=== PATIENT | female | born 1970 | race Caucasian/White ===

== ENCOUNTER 2019-06-08 15:52 | Emergency (ER) | payer OTHER ==
[~2019-06-08] VITALS: Ht 154.9 cm; Wt 79.8 kg
[2019-06-08 15:54] VITALS: BP 117/86
[2019-06-08] MEDS ORDERED: VOLTAREN GEL 1100 G2 TOP (16:28)
== END 2019-06-08 16:46 | disposition home or self-care (01) ==
LOC: ER 15:52
DX: S40.011A Contusion of right shoulder, initial encounter (principal); E11.9 Type 2 diabetes mellitus without complications; E78.00 Pure hypercholesterolemia, unspecified; F32.9 Major depressive disorder, single episode, unspecified; F17.210 Nicotine dependence, cigarettes, uncomplicated; Z98.890 Other specified postprocedural states; Z86.2 Personal history of diseases of the blood and blood-forming organs and certain disorders involving the immune mechanism; Z90.49 Acquired absence of other specified parts of digestive tract; Z98.51 Tubal ligation status; W22.03XA Walked into furniture, initial encounter; Y93.89 Activity, other specified; Y92.89 Other specified places as the place of occurrence of the external cause; Y99.0 Civilian activity done for income or pay

== ENCOUNTER 2019-11-12 15:56 | Emergency (ER) | payer OTHER ==
[~2019-11-12] VITALS: Ht 154.9 cm; Wt 80.3 kg
[~2019-11-12 15:56] MED LIST: VOLTAREN GEL 1100 G2 TOP
[2019-11-12 16:01] VITALS: BP 123/85
[2019-11-12] MEDS ORDERED: KEFLEX500 M1 PO (16:25)
== END 2019-11-12 16:31 | disposition home or self-care (01) ==
LOC: ER 15:56
DX: L03.011 Cellulitis of right finger (principal); E11.9 Type 2 diabetes mellitus without complications; E78.00 Pure hypercholesterolemia, unspecified; F32.9 Major depressive disorder, single episode, unspecified; F17.210 Nicotine dependence, cigarettes, uncomplicated; Z98.890 Other specified postprocedural states; Z90.49 Acquired absence of other specified parts of digestive tract; Z98.51 Tubal ligation status; Z86.2 Personal history of diseases of the blood and blood-forming organs and certain disorders involving the immune mechanism

== ENCOUNTER → 2020-01-10 | Outpatient (CLI) | payer OTHER ==
[~2020-01-10] MED LIST changes: +KEFLEX500 M1 PO
== END ==
LOC: RAD 11:02
PROVIDERS: ATTEND Nurse Practitioner
DX: Z12.31 Encounter for screening mammogram for malignant neoplasm of breast (principal)

== ENCOUNTER → 2020-01-10 | Outpatient (CLI) | payer OTHER ==
[2020-01-10 11:07] LABS: ABSOLUTE NEUTROPHILS 5.5 thou/uL (1.4-8.2); BASOPHILS 0.5 % (0.0-2.0); EOSINOPHILS 1.1 % (0.0-3.0); HEMATOCRIT 44.4 % (37.0-47.0); HEMOGLOBIN 15.2 gm/dL (12.0-15.0); LYMPHOCYTES 22.7 % (24.0-44.0); MCH 28.7 pg (26.0-34.0); MCHC 34.2 g/dL (28.0-37.0); MCV 83.8 fL (80.0-100.0); PLATELET COUNT 264 thou/uL (150-400); POLYS 69.7 % (36.0-66.0); RDW 12.6 % (10.5-14.5); WBC 7.9 thou/uL (4.0-11.0)
[2020-01-10 11:37] LABS: ALBUMIN 4.1 g/dL (3.4-5.0); ANION GAP 6 mmol/L (7-16); BUN 13 mg/dL (7-18); CALCIUM 8.7 mg/dL (8.5-10.1); CHLORIDE 99 mmol/L (98-107); CO2 32 mmol/L (21-32); CREATININE 0.6 mg/dL (0.6-1.0); GLUCOSE 176 mg/dL (74-106); POTASSIUM 4.4 mmol/L (3.5-5.1); SGOT 23 U/L (15-37); SGPT 50 U/L (30-65); SODIUM 137 mmol/L (136-145); TOTAL BILIRUBIN 0.5 mg/dL (0.2-1.0); TOTAL PROTEIN 7.2 g/dL (6.4-8.2)
[2020-01-10 11:52] LABS: CHOLESTEROL 144 mg/dL (<200); HDL CHOLESTEROL 35 mg/dL (>40); LDL CHOLESTEROL 81 mg/dL (<100); TC:HDL 4.1 Ratio (Not establshd); TRIGLYCERIDE 142 mg/dL (<150); VLDL 28 mg/dL (<40)
[2020-01-11 02:07] LABS: GLYCOHEMOGLOBIN (HGB A1C) 8.2 % (4.8-5.6)
== END ==
LOC: LABMALL 10:28
PROVIDERS: ATTEND Nurse Practitioner
DX: E11.9 Type 2 diabetes mellitus without complications (principal); E78.5 Hyperlipidemia, unspecified; R74.8 Abnormal levels of other serum enzymes; I10 Essential (primary) hypertension

== ENCOUNTER → 2020-05-11 | Outpatient (CLI) | payer OTHER | LOC: LAB 08:18 | PROVIDERS: ATTEND Nurse Practitioner | DX: Z20.828 Contact with and (suspected) exposure to other viral communicable diseases (principal) ==

== ENCOUNTER → 2020-06-05 | Outpatient (CLI) | payer OTHER | LOC: LAB 10:29 | PROVIDERS: ATTEND Nurse Practitioner | DX: Z20.828 Contact with and (suspected) exposure to other viral communicable diseases (principal) ==

== ENCOUNTER → 2020-07-18 | Outpatient (CLI) | payer OTHER | LOC: LAB 14:15 | PROVIDERS: ATTEND Specialist | DX: Z20.828 Contact with and (suspected) exposure to other viral communicable diseases (principal) ==

== ENCOUNTER → 2020-07-24 | Outpatient (CLI) | payer OTHER | LOC: LAB 08:59 | PROVIDERS: ATTEND Specialist | DX: Z20.828 Contact with and (suspected) exposure to other viral communicable diseases (principal) ==

== ENCOUNTER → 2020-07-31 | Outpatient (CLI) | payer OTHER | LOC: LAB 10:03 | PROVIDERS: ATTEND Specialist | DX: Z20.828 Contact with and (suspected) exposure to other viral communicable diseases (principal) ==

== ENCOUNTER → 2020-08-07 | Outpatient (CLI) | payer OTHER ==
[2020-08-07 11:34] LABS: ANION GAP 10 mmol/L (7-16); BUN 26 mg/dL (7-18); CALCIUM 9.5 mg/dL (8.5-10.1); CHLORIDE 97 mmol/L (98-107); CHOLESTEROL 156 mg/dL (<200); CO2 29 mmol/L (21-32); CREATININE 0.8 mg/dL (0.6-1.0); GLUCOSE 222 mg/dL (74-106); HDL CHOLESTEROL 32 mg/dL (>40); LDL CHOLESTEROL 88 mg/dL (<100); POTASSIUM 4.2 mmol/L (3.5-5.1); SODIUM 136 mmol/L (136-145); TC:HDL 4.9 Ratio (Not establshd); TRIGLYCERIDE 181 mg/dL (<150); VLDL 36 mg/dL (<40)
[2020-08-08 01:06] LABS: GLYCOHEMOGLOBIN (HGB A1C) 8.6 % (4.8-5.6)
== END ==
LOC: LAB 10:50
PROVIDERS: ATTEND Nurse Practitioner
DX: E11.65 Type 2 diabetes mellitus with hyperglycemia (principal)

== ENCOUNTER → 2020-08-07 | Outpatient (CLI) | payer OTHER | LOC: LAB 11:14 | PROVIDERS: ATTEND Specialist | DX: Z20.828 Contact with and (suspected) exposure to other viral communicable diseases (principal) ==

== ENCOUNTER → 2020-08-16 | Outpatient (CLI) | payer OTHER | LOC: LAB 09:26 | PROVIDERS: ATTEND Specialist | DX: Z20.822 Contact with and (suspected) exposure to COVID-19 (principal) ==

== ENCOUNTER → 2020-08-21 | Outpatient (CLI) | payer OTHER | LOC: LAB 12:15 | PROVIDERS: ATTEND Specialist | DX: Z20.822 Contact with and (suspected) exposure to COVID-19 (principal) ==

== ENCOUNTER → 2021-01-07 | Outpatient (CLI) | payer OTHER ==
[~2021-01-07] MED LIST changes: +ASA81BEC PO; +ATORVASTATIN CA20 MG PO; +CELEXA 20 MG TA20 MG PO; +CHANTIX0.5 MG PO; +FISH OIL 1,0001 EAC9 PO; +FOLIC ACID1 MG PO; +METFORMIN HCL500 M1 PO; +MULTI VITAMIN1 EACH PO; +OMEPRAZOLE 20 M20 M1 PO; +TRULICITY0.75 MG/0. SUBQ; +VITAMIN B-121000 MC2 SUBLING; +ZINC50 MG PO
[2021-01-07 12:08] LABS: URINE BILIRUBIN NEGATIVE (Negative); URINE BLOOD NEGATIVE (Negative); URINE CLARITY CLEAR; URINE COLOR YELLOW; URINE GLUCOSE-RANDOM* NEGATIVE (Negative); URINE KETONES NEGATIVE (Negative); URINE LEUKOCYTES NEGATIVE (Negative); URINE NITRITE NEGATIVE (Negative); URINE PROTEIN (DIPSTICK) NEGATIVE (Negative); URINE SPECIFIC GRAVITY 1.015 (1.005-1.035); URINE UROBILINOGEN 0.2 E.U./dl (0.2-1.0)
[2021-01-07 12:19] LABS: ABSOLUTE NEUTROPHILS 5.8 thou/uL (1.4-8.2); BASOPHILS 0.4 % (0.0-2.0); EOSINOPHILS 1.2 % (0.0-3.0); HEMATOCRIT 39.7 % (37.0-47.0); HEMOGLOBIN 13.7 gm/dL (12.0-15.0); LYMPHOCYTES 23.8 % (24.0-44.0); MCH 28.6 pg (26.0-34.0); MCHC 34.4 g/dL (28.0-37.0); MCV 83.3 fL (80.0-100.0); PLATELET COUNT 256 thou/uL (150-400); POLYS 69.6 % (36.0-66.0); RBC 4.77 mil/uL (4.20-5.00); RDW 12.5 % (10.5-14.5); WBC 8.4 thou/uL (4.0-11.0)
[2021-01-07 12:28] LABS: ALBUMIN 3.8 g/dL (3.4-5.0); ANION GAP 10 mmol/L (7-16); BUN 13 mg/dL (7-18); CHLORIDE 102 mmol/L (98-107); CHOLESTEROL 130 mg/dL (<200); CO2 28 mmol/L (21-32); CREATININE 0.6 mg/dL (0.6-1.0); GLUCOSE 203 mg/dL (74-106); HDL CHOLESTEROL 33 mg/dL (>40); LDL CHOLESTEROL 68 mg/dL (<100); POTASSIUM 4.4 mmol/L (3.5-5.1); SGOT 31 U/L (15-37); SGPT 85 U/L (30-65); SODIUM 140 mmol/L (136-145); TC:HDL 3.9 Ratio (Not establshd); TOTAL BILIRUBIN 0.4 mg/dL (0.2-1.0); TOTAL PROTEIN 7.2 g/dL (6.4-8.2); TRIGLYCERIDE 148 mg/dL (<150); VLDL 30 mg/dL (<40)
[2021-01-08 00:06] LABS: GLYCOHEMOGLOBIN (HGB A1C) 9.7 % (4.8-5.6)
== END ==
LOC: LAB 10:32
PROVIDERS: ATTEND Nurse Practitioner
DX: E11.65 Type 2 diabetes mellitus with hyperglycemia (principal)

== ENCOUNTER → 2021-01-14 | Outpatient (CLI) | payer OTHER ==
[~2021-01-14] VITALS: Ht 154.9 cm; Wt 83.0 kg
--- NOTE | 2021-01-16 17:07 | PATH ---
[facility] [address] [place] [address] PATHOLOGY RPT PROCEDURE Name: ROBBY SHORE Room #: REG [facility] MFabio.#: [id number] Admission: 01/14/21 Date of : 72 Discharge: Report #: [id number] Path Case #: [id number] [facility] Accession Number: [id number] . 01 Material submitted: . rectum - RECTAL POLYP X2 SNARE. Modifiers: X2 . 01 Clinical history: . DTS/COLONOSCOPY AND EGD/ESOPHAGITIS . 02 Diagnosis: Polyp x 2, rectal polyp, endoscopic biopsy: - Hyperplastic polyp identified in both fragments. - Negative for dysplasia. (IUV:pit; 01/16/2021) QTP 01/16/2021 1230 Local . 02 Electronically signed: . Josey Bhatt MD, Pathologist NPI- [id number] . 01 Gross description: . Received in formalin labeled "Zach, Robby, rectal polyp x 2" are multiple graves-brown soft tissue fragments measuring in aggregate 0.5 x 0.4 x 0.2 cm. The specimen is submitted entirely in A1. (CHERY; 01/15/2021) CHERY/CHERY 01/16/2021 1229 Local . 02 Pathologist provided ICD-10: K62.1 . 02 CPT . 573791 Specimen Comment: A courtesy copy of this report has been sent to [phone] Specimen Comment: [id number] Specimen Comment: Report sent to / DR PAUL Performed at: [address], [place] [id number] MD Talib Collins MD Phone: [phone] Performed at: [address] [id number] MD Josey Bhatt MD Phone: [phone]
== END | disposition home or self-care (01) ==
LOC: GI 08:59
PROVIDERS: ATTEND Internal Medicine Gastroenterology
DX: Z12.11 Encounter for screening for malignant neoplasm of colon (principal); Z80.0 Family history of malignant neoplasm of digestive organs; K62.1 Rectal polyp; R12 Heartburn; K44.9 Diaphragmatic hernia without obstruction or gangrene; I10 Essential (primary) hypertension; E11.9 Type 2 diabetes mellitus without complications; E78.00 Pure hypercholesterolemia, unspecified; F32.9 Major depressive disorder, single episode, unspecified; F41.9 Anxiety disorder, unspecified; G47.30 Sleep apnea, unspecified; F17.210 Nicotine dependence, cigarettes, uncomplicated; Z98.890 Other specified postprocedural states; Z79.899 Other long term (current) drug therapy; Z90.49 Acquired absence of other specified parts of digestive tract; Z98.51 Tubal ligation status
CPT/HCPCS: 62110; 62900

== ENCOUNTER → 2021-04-10 | Outpatient (CLI) | payer OTHER ==
[2021-04-10 12:48] LABS: ABSOLUTE NEUTROPHILS 6.6 thou/uL (1.4-8.2); BASOPHILS 0.7 % (0.0-2.0); EOSINOPHILS 1.3 % (0.0-3.0); HEMATOCRIT 39.4 % (37.0-47.0); HEMOGLOBIN 13.3 gm/dL (12.0-15.0); LYMPHOCYTES 24.2 % (24.0-44.0); MCH 28.5 pg (26.0-34.0); MCHC 33.8 g/dL (28.0-37.0); MCV 84.2 fL (80.0-100.0); MONOCYTES 5.4 % (1.0-8.0); PLATELET COUNT 314 thou/uL (150-400); POLYS 68.4 % (36.0-66.0); RBC 4.69 mil/uL (4.20-5.00); RDW 12.5 % (10.5-14.5); WBC 9.7 thou/uL (4.0-11.0)
[2021-04-10 12:51] LABS: URINE BILIRUBIN NEGATIVE (Negative); URINE BLOOD NEGATIVE (Negative); URINE CLARITY CLEAR; URINE COLOR YELLOW; URINE GLUCOSE-RANDOM* NEGATIVE (Negative); URINE KETONES NEGATIVE (Negative); URINE LEUKOCYTES NEGATIVE (Negative); URINE NITRITE NEGATIVE (Negative); URINE PROTEIN (DIPSTICK) NEGATIVE (Negative); URINE SPECIFIC GRAVITY <= 1.005 (1.005-1.035); URINE UROBILINOGEN 0.2 E.U./dl (0.2-1.0)
[2021-04-10 13:07] LABS: ALBUMIN 4.1 g/dL (3.4-5.0); ANION GAP 10 mmol/L (7-16); BUN 16 mg/dL (7-18); CALCIUM 9.1 mg/dL (8.5-10.1); CHLORIDE 101 mmol/L (98-107); CHOLESTEROL 144 mg/dL (<200); CO2 29 mmol/L (21-32); CREATININE 0.7 mg/dL (0.6-1.0); GLUCOSE 132 mg/dL (74-106); HDL CHOLESTEROL 37 mg/dL (>40); LDL CHOLESTEROL 81 mg/dL (<100); POTASSIUM 4.2 mmol/L (3.5-5.1); SGOT 28 U/L (15-37); SGPT 72 U/L (30-65); SODIUM 140 mmol/L (136-145); TC:HDL 3.9 Ratio (Not establshd); TOTAL BILIRUBIN 0.4 mg/dL (0.2-1.0); TOTAL PROTEIN 7.6 g/dL (6.4-8.2); TRIGLYCERIDE 131 mg/dL (<150); VLDL 26 mg/dL (<40)
[2021-04-11 01:06] LABS: GLYCOHEMOGLOBIN (HGB A1C) 8.9 % (4.8-5.6)
== END ==
LOC: LAB 11:01
PROVIDERS: ATTEND Nurse Practitioner
DX: E11.65 Type 2 diabetes mellitus with hyperglycemia (principal)

== ENCOUNTER → 2021-05-21 | Outpatient (CLI) | payer OTHER | LOC: BC 13:45 | PROVIDERS: ATTEND Nurse Practitioner | DX: Z12.31 Encounter for screening mammogram for malignant neoplasm of breast (principal) ==

== ENCOUNTER → 2021-07-31 | Outpatient (CLI) | payer OTHER ==
[2021-07-31 11:57] LABS: ABSOLUTE NEUTROPHILS 6.7 thou/uL (1.4-8.2); BASOPHILS 0.4 % (0.0-2.0); EOSINOPHILS 0.9 % (0.0-3.0); HEMATOCRIT 41.1 % (37.0-47.0); HEMOGLOBIN 13.6 gm/dL (12.0-15.0); LYMPHOCYTES 22.3 % (24.0-44.0); MCH 27.7 pg (26.0-34.0); MCV 83.8 fL (80.0-100.0); MONOCYTES 5.3 % (1.0-8.0); PLATELET COUNT 284 thou/uL (150-400); POLYS 71.1 % (36.0-66.0); RDW 12.6 % (10.5-14.5); WBC 9.5 thou/uL (4.0-11.0)
[2021-07-31 12:32] LABS: ALBUMIN 3.9 g/dL (3.4-5.0); ANION GAP 7 mmol/L (7-16); BUN 20 mg/dL (7-18); CALCIUM 8.9 mg/dL (8.5-10.1); CHLORIDE 102 mmol/L (98-107); CHOLESTEROL 154 mg/dL (<200); CO2 30 mmol/L (21-32); CREATININE 0.7 mg/dL (0.6-1.0); GLUCOSE 221 mg/dL (74-106); HDL CHOLESTEROL 37 mg/dL (>40); LDL CHOLESTEROL 86 mg/dL (<100); POTASSIUM 4.6 mmol/L (3.5-5.1); SGOT 20 U/L (15-37); SGPT 42 U/L (30-65); SODIUM 139 mmol/L (136-145); TC:HDL 4.2 Ratio (Not establshd); TOTAL BILIRUBIN 0.3 mg/dL (0.2-1.0); TOTAL PROTEIN 7.2 g/dL (6.4-8.2); TRIGLYCERIDE 156 mg/dL (<150); VLDL 31 mg/dL (<40)
[2021-08-01 02:06] LABS: GLYCOHEMOGLOBIN (HGB A1C) 8.3 % (4.8-5.6)
== END ==
LOC: LAB 11:15
PROVIDERS: ATTEND Nurse Practitioner
DX: Z00.00 Encounter for general adult medical examination without abnormal findings (principal); E11.65 Type 2 diabetes mellitus with hyperglycemia